=== PATIENT | female | born 1940 | race Caucasian/White ===

== ENCOUNTER → 2018-08-05 | Outpatient (CLI) | payer OTHER ==
[~2018-08-05] MED LIST: AMLODIPINE BESYL5 MG PO; ASPIR-TRIN325 MG PO; ASPIRIN325 PO; BUTALB-CAFF-AC1 EACH PO; BYSTOLIC 5 MG5 M1 PO; EFFIENT10 MG PO; ESTRACE1 TUBE VAG; ESTRADIOL 1 MG T1 M1 PO; FIORINAL CAPSUL1 CA1 PO; IMITREX 25 MG T25 M1 PO; IMITREX 50 MG T50 MG PO; IMITREX100 MG PO; LEVOTHYROXIN0.137 M1 PO; LIPITOR 20 MG T20 M1 PO; NORVASC 5 MG TAB5 MG PO; PRAVACHOL20 MG PO; PRILOSEC 20 MG20 MG PO; PRILOSEC40 MG PO; ZANAFLEX4 MG PO; ZOLOFT100 MG PO; ZOLOFT25 MG PO
== END ==
LOC: RAD 09:23
DX: R05 Cough (principal)